=== PATIENT | female | born 1980 | race Asian ===

== ENCOUNTER 2019-05-15 08:10 | Day surgery (SDC) | payer BC, MEDICAID ==
[2019-05-15] MEDS ORDERED: LIDOCAINE 2% (SDV) 5 ML INJ (10:12)
[2019-05-15] MEDS ORDERED: PROPOFOL 40 ML (10:12)
[2019-05-15] MEDS ORDERED: FENTAnyl 50 MCG/ML VIAL (10:12)
[2019-05-15] MEDS ORDERED: MIDAZOLAM 1 MG/ML 2 ML INJ (10:12)
== END 2019-05-15 17:43 | disposition home or self-care (01) ==
LOC: GIL 08:10
DX: C18.7 Malignant neoplasm of sigmoid colon (principal); K64.8 Other hemorrhoids
CPT/HCPCS: 45380; 84703; 88305

== ENCOUNTER 2019-05-16 11:53 | Inpatient (IN) | payer BC ==
[2019-05-16 13:22] LABS: ADD MAN DIFF? NO
[2019-05-16] MEDS: ONDANSETRON 4 MG INJ IV ×2 (13:22→19:57)
[2019-05-16] MEDS: morphine 2 MG INJ IV ×2 (13:23→23:33)
[2019-05-16] MEDS: SOD CHLORIDE 0.9% 1,000 ML IV ×2 (13:23→22:40)
[2019-05-16 13:25] LABS: BASOPHILS % 0.4 % (0.0-2.0); EOSINOPHILS # 0.1 10^3/ul (0.0-0.5); EOSINOPHILS % 1.3 % (0.0-7.0); HEMATOCRIT 35.8 % (37.0-47.0); HEMOGLOBIN 11.5 g/dl (12.0-16.0); LYMPHOCYTES # 1.6 10^3/ul (0.8-2.9); LYMPHOCYTES % 16.4 % (15.0-51.0); MEAN CORPUSCULAR HGB CONC 32.1 g/dl (32.0-37.0); MEAN PLATELET VOLUME 9.7 fl (7.4-10.4); MONOCYTE # 0.7 10^3/ul (0.3-0.9); MONOCYTES % 6.9 % (0.0-11.0); NEUTROPHIL # 7.2 10^3/ul (1.6-7.5); NEUTROPHILS % 74.8 % (39.0-77.0); PLATELET COUNT 258 10^3/UL (140-415); RED BLOOD COUNT 4.26 10^6/ul (4.20-5.40); RED CELL DISTRIBUTION WIDTH 13.2 % (11.5-14.5)
[2019-05-16 13:25] LABS: WHITE BLOOD COUNT 9.7 10^3/ul (4.8-10.8)
[2019-05-16 13:35] LABS: ADD UMIC YES; UR ASCORBIC ACID NEGATIVE (NEGATIVE); UR BACTERIA FEW /HPF (NONE SEEN); UR BILIRUBIN (Dip) NEGATIVE (NEGATIVE); UR BLOOD (Dip) 2+ mg/dL (NEGATIVE); UR CLARITY CLOUDY (CLEAR); UR COLOR YELLOW (YELLOW); UR GLUCOSE (Dip) NEGATIVE (NEGATIVE); UR KETONES (Dip) TRACE mg/dL (NEGATIVE); UR LEUKOCYTE ESTERASE (Dip) NEGATIVE Leu/ul (NEGATIVE); UR MUCUS FEW /HPF (NONE SEEN); UR NITRITE (Dip) NEGATIVE (NEGATIVE); UR RBC 4 /HPF (0-5); UR SPECIFIC GRAVITY (Dip) 1.015 (1.003-1.030); UR SQUAMOUS EPITHELIAL CELL FEW /HPF (FEW); UR TOTAL PROTEIN (Dip) NEGATIVE (NEGATIVE); UR UROBILINOGEN (Dip) NEGATIVE (NEGATIVE); UR WBC 5 /HPF (0-5)
[2019-05-16 13:44] LABS: INR 1.09; PROTIME 14.2 Sec (11.9-14.9); PT RATIO 1.1
[2019-05-16 13:45] LABS: PARTIAL THROMBOPLASTIN TIME 33.5 Sec (23.0-35.0)
[2019-05-16 14:17] LABS: ALANINE AMINOTRANSFERASE 22 IU/L (13-69); ALBUMIN 3.6 g/dl (3.3-4.9); ALBUMIN/GLOBULIN RATIO 1.12; ALKALINE PHOSPHATASE 64 IU/L (42-121); ANION GAP 7 (5-13); ASPARTATE AMINO TRANSFERASE 17 IU/L (15-46); BILIRUBIN,INDIRECT 0.5 mg/dl (0-1.1); BILIRUBIN,TOTAL 0.5 mg/dl (0.2-1.3); BLOOD UREA NITROGEN 8 mg/dl (7-20); CALCIUM 9.3 mg/dl (8.4-10.2); CARBON DIOXIDE 27 mmol/L (21-31); CHLORIDE 111 mmol/L (97-110); Estimated GFR > 60 mL/min (>60); GLUCOSE 100 mg/dl (70-220); LIPASE 78 U/L (23-300); POTASSIUM 3.4 mmol/L (3.5-5.1); SODIUM 145 mmol/L (135-144); TOTAL PROTEIN 6.8 g/dl (6.1-8.1)
[2019-05-16] MEDS: IOHEXOL 300MG/ML 150 ML BTL (15:06)
[2019-05-16] MEDS: SOD CHLORIDE 0.9% 100 ML (15:06)
[2019-05-16] MEDS: morphine 4 MG/ML VIAL IV (19:57)
[2019-05-16] MEDS ORDERED: NACL 0.9% 3 ML SYG IV (21:30)
[2019-05-16] MEDS ORDERED: ONDANSETRON 4 MG INJ IV ×2 (21:30)
[2019-05-16] MEDS ORDERED: ACETAMINOPHEN 325 MG TAB PO (21:30)
[2019-05-16] MEDS: FAMOTIDINE 20 MG INJ IV (22:40)
[2019-05-17] MEDS: ZOLPIDEM 5 MG TAB PO (01:14)
[2019-05-17] MEDS: morphine 2 MG INJ IV ×2 (04:31→08:48)
[2019-05-17 05:05] LABS: ADD MAN DIFF? NO
[2019-05-17 05:06] LABS: BASOPHIL # 0.1 10^3/ul (0.0-0.1); BASOPHILS % 0.7 % (0.0-2.0); EOSINOPHILS # 0.1 10^3/ul (0.0-0.5); EOSINOPHILS % 1.7 % (0.0-7.0); HEMATOCRIT 32.7 % (37.0-47.0); HEMOGLOBIN 10.4 g/dl (12.0-16.0); LYMPHOCYTES % 28.6 % (15.0-51.0); MEAN CORPUSCULAR HEMOGLOBIN 26.8 pg (29.0-33.0); MEAN CORPUSCULAR HGB CONC 31.8 g/dl (32.0-37.0); MEAN CORPUSCULAR VOLUME 84.3 fl (82.0-101.0); MEAN PLATELET VOLUME 9.7 fl (7.4-10.4); MONOCYTE # 0.4 10^3/ul (0.3-0.9); MONOCYTES % 6.4 % (0.0-11.0); NEUTROPHIL # 4.3 10^3/ul (1.6-7.5); NEUTROPHILS % 62.3 % (39.0-77.0); PLATELET COUNT 230 10^3/UL (140-415); RED BLOOD COUNT 3.88 10^6/ul (4.20-5.40); RED CELL DISTRIBUTION WIDTH 13.5 % (11.5-14.5)
[2019-05-17 05:06] LABS: WHITE BLOOD COUNT 6.9 10^3/ul (4.8-10.8)
[2019-05-17 05:38] LABS: ALANINE AMINOTRANSFERASE 25 IU/L (13-69); ALBUMIN 3.1 g/dl (3.3-4.9); ALBUMIN/GLOBULIN RATIO 1.06; ALKALINE PHOSPHATASE 50 IU/L (42-121); ANION GAP 6 (5-13); ASPARTATE AMINO TRANSFERASE 13 IU/L (15-46); BILIRUBIN,INDIRECT 0.4 mg/dl (0-1.1); BILIRUBIN,TOTAL 0.4 mg/dl (0.2-1.3); BLOOD UREA NITROGEN 5 mg/dl (7-20); CALCIUM 8.5 mg/dl (8.4-10.2); CARBON DIOXIDE 25 mmol/L (21-31); CHLORIDE 111 mmol/L (97-110); CHOL/HDL RATIO 3.3 RATIO; CHOLESTEROL 128 mg/dl (100-200); CREATININE 0.65 mg/dl (0.44-1.00); Estimated GFR > 60 mL/min (>60); GLUCOSE 100 mg/dl (70-220); HDL CHOLESTEROL 38 mg/dl (34-88); LDL CHOLESTEROL,CALCULATED 73 mg/dl; MAGNESIUM 1.8 mg/dl (1.7-2.5); POTASSIUM 3.4 mmol/L (3.5-5.1); SODIUM 142 mmol/L (135-144); TRIGLYCERIDES 85 mg/dl (0-149)
[2019-05-17] MEDS: FAMOTIDINE 20 MG INJ IV (08:47)
[2019-05-17] MEDS: SOD CHLORIDE 0.9% 1,000 ML IV (10:44)
[2019-05-17] MEDS: HYDROmorphONE 1 MG/ML SYG IV ×3 (12:22→21:11)
[2019-05-17] MEDS: POTASSIUM CHLORIDE (SR) 20 MEQ TAB PO (16:06)
[2019-05-17] MEDS: D5-NS + KCL 20 MEQ 1,000 ML IV (16:15)
[2019-05-17] MEDS: FAMOTIDINE 20 MG TAB PO (21:11)
[2019-05-18] MEDS: HYDROmorphONE 1 MG/ML SYG IV ×5 (00:39→18:57)
[2019-05-18] MEDS: D5-NS + KCL 20 MEQ 1,000 ML IV ×2 (04:30→18:53)
[2019-05-18 05:09] LABS: ADD MAN DIFF? NO
[2019-05-18 05:12] LABS: BASOPHILS % 0.7 % (0.0-2.0); EOSINOPHILS # 0.2 10^3/ul (0.0-0.5); EOSINOPHILS % 3.1 % (0.0-7.0); HEMATOCRIT 30.8 % (37.0-47.0); HEMOGLOBIN 9.8 g/dl (12.0-16.0); LYMPHOCYTES % 34.5 % (15.0-51.0); MEAN CORPUSCULAR HGB CONC 31.8 g/dl (32.0-37.0); MEAN CORPUSCULAR VOLUME 84.8 fl (82.0-101.0); MEAN PLATELET VOLUME 9.5 fl (7.4-10.4); MONOCYTE # 0.4 10^3/ul (0.3-0.9); NEUTROPHIL # 3.2 10^3/ul (1.6-7.5); NEUTROPHILS % 54.4 % (39.0-77.0); PLATELET COUNT 220 10^3/UL (140-415); RED BLOOD COUNT 3.63 10^6/ul (4.20-5.40); RED CELL DISTRIBUTION WIDTH 13.2 % (11.5-14.5)
[2019-05-18 05:12] LABS: WHITE BLOOD COUNT 5.9 10^3/ul (4.8-10.8)
[2019-05-18 05:36] LABS: ALANINE AMINOTRANSFERASE 24 IU/L (13-69); ALKALINE PHOSPHATASE 50 IU/L (42-121); ANION GAP 5 (5-13); ASPARTATE AMINO TRANSFERASE 18 IU/L (15-46); BILIRUBIN,INDIRECT 0.4 mg/dl (0-1.1); BILIRUBIN,TOTAL 0.4 mg/dl (0.2-1.3); BLOOD UREA NITROGEN 2 mg/dl (7-20); CALCIUM 8.5 mg/dl (8.4-10.2); CARBON DIOXIDE 26 mmol/L (21-31); CHLORIDE 109 mmol/L (97-110); CREATININE 0.59 mg/dl (0.44-1.00); Estimated GFR > 60 mL/min (>60); GLUCOSE 102 mg/dl (70-220); POTASSIUM 3.3 mmol/L (3.5-5.1); SODIUM 140 mmol/L (135-144)
[2019-05-18] MEDS: FAMOTIDINE 20 MG TAB PO ×2 (08:02→21:19)
[2019-05-18] MEDS: POTASSIUM CHLORIDE 100 ML IVPB (13:28)
[2019-05-18] MEDS ORDERED: MIDAZOLAM 1 MG/ML 2 ML INJ (15:22)
[2019-05-18] MEDS ORDERED: ROCURONIUM 50 MG INJ (15:23)
[2019-05-18] MEDS ORDERED: LIDOCAINE 2% (SDV) 5 ML INJ (15:23)
[2019-05-18] MEDS ORDERED: PROPOFOL 20 ML (15:23)
[2019-05-18] MEDS ORDERED: SUCCINYLCHOLINE CHLORIDE 100 MG/5 ML SYG IV (15:23)
[2019-05-18] MEDS ORDERED: morphine SULFATE/PF (10 MG/10 ML) INJ (15:37)
[2019-05-18] MEDS ORDERED: FENTAnyl 50 MCG/ML VIAL (15:45)
[2019-05-18] MEDS ORDERED: metroNIDAZOLE 500 MG/NS (PMX) 100 ML IVPB ×2 (16:04→18:00)
[2019-05-18] MEDS ORDERED: CEFAZOLIN 1 GM INJ (16:04)
[2019-05-18] MEDS ORDERED: FAMOTIDINE 20 MG INJ (16:11)
[2019-05-18] MEDS ORDERED: ONDANSETRON 4 MG INJ (16:11)
[2019-05-18] MEDS ORDERED: DEXAMETHASONE 4 MG/ML 5 ML INJ (16:11)
[2019-05-18] MEDS ORDERED: EPHEDrine 25 MG/5 ML SYG (16:53)
[2019-05-18] MEDS ORDERED: GLYCOPYRROLATE 0.4 MG INJ ×2 (17:27→17:46)
[2019-05-18] MEDS ORDERED: NEOSTIGMINE 3 MG/3 ML SYRINGE ×2 (17:27→17:46)
[2019-05-18] MEDS ORDERED: PROCHLORPERAZINE 10 MG INJ IV (17:30)
[2019-05-18] MEDS ORDERED: ONDANSETRON 4 MG INJ IV ×3 (17:30→18:00)
[2019-05-18] MEDS ORDERED: DIPHENHYDRAMINE 50 MG INJ IV (17:30)
[2019-05-18] MEDS ORDERED: HYDROmorphONE 0.5 MG/0.5 ML SYG IV ×2 (17:30)
[2019-05-18] MEDS ORDERED: MEPERIDINE 25 MG INJ IV (17:30)
[2019-05-18] MEDS ORDERED: FENTAnyl 50 MCG/ML VIAL IV ×3 (17:30)
[2019-05-18] MEDS ORDERED: HYDROmorphONE 1 MG/5 ML IV SYRINGE IV ×3 (17:30)
[2019-05-18] MEDS ORDERED: NALBUPHINE HCL (10 MG/1 ML) INJ IV (17:30)
[2019-05-18] MEDS ORDERED: NALOXONE (0.4 MG/ML) INJ IV (17:30)
[2019-05-18] MEDS ORDERED: CEFAZOLIN 2 GM/50 ML (PMX) 50 ML IVPB ×2 (18:00→20:00)
[2019-05-18] MEDS ORDERED: ACETAMINOPHEN 500 MG TAB PO (18:00)
[2019-05-18] MEDS ORDERED: KETOROLAC 30 MG INJ (18:26)
[2019-05-18] MEDS: KETOROLAC 30 MG INJ IV ×2 (18:27→23:40)
[2019-05-18 18:38] LABS: ADD MAN DIFF? NO
[2019-05-18 19:17] LABS: BASOPHILS % 0.4 % (0.0-2.0); HEMATOCRIT 34.9 % (37.0-47.0); HEMOGLOBIN 11.1 g/dl (12.0-16.0); LYMPHOCYTES % 16.3 % (15.0-51.0); MEAN CORPUSCULAR HGB CONC 31.8 g/dl (32.0-37.0); MEAN CORPUSCULAR VOLUME 84.9 fl (82.0-101.0); MONOCYTES % 1.9 % (0.0-11.0); NEUTROPHILS % 80.1 % (39.0-77.0); PLATELET COUNT 230 10^3/UL (140-415); RED BLOOD COUNT 4.11 10^6/ul (4.20-5.40); RED CELL DISTRIBUTION WIDTH 13.2 % (11.5-14.5)
[2019-05-18 19:17] LABS: WHITE BLOOD COUNT 7.9 10^3/ul (4.8-10.8)
[2019-05-18 19:18] LABS: EOSINOPHILS # 0.1 10^3/ul (0.0-0.5); LYMPHOCYTES # 1.3 10^3/ul (0.8-2.9); MONOCYTE # 0.2 10^3/ul (0.3-0.9); NEUTROPHIL # 6.3 10^3/ul (1.6-7.5)
[2019-05-18 19:39] LABS: ANION GAP 5 (5-13); BLOOD UREA NITROGEN 3 mg/dl (7-20); CALCIUM 8.3 mg/dl (8.4-10.2); CARBON DIOXIDE 26 mmol/L (21-31); CHLORIDE 109 mmol/L (97-110); CREATININE 0.52 mg/dl (0.44-1.00); Estimated GFR > 60 mL/min (>60); GLUCOSE 129 mg/dl (70-220); POTASSIUM 3.4 mmol/L (3.5-5.1); SODIUM 140 mmol/L (135-144)
[2019-05-18] MEDS ORDERED: FAMOTIDINE 20 MG TAB PO (21:00)
[2019-05-18] MEDS: CEFAZOLIN 2 GM/50 ML (PMX) 50 ML IVPB (21:17)
[2019-05-18] MEDS: metroNIDAZOLE 500 MG/NS (PMX) 100 ML IVPB (22:02)
[2019-05-18] MEDS: DIPHENHYDRAMINE 50 MG INJ IV (22:07)
[2019-05-19] MEDS: CEFAZOLIN 2 GM/50 ML (PMX) 50 ML IVPB ×2 (04:27→12:27)
[2019-05-19] MEDS: D5-NS + KCL 20 MEQ 1,000 ML IV (04:28)
[2019-05-19 05:06] LABS: ADD MAN DIFF? NO
[2019-05-19 05:22] LABS: BASOPHILS % 0.1 % (0.0-2.0); HEMATOCRIT 30.2 % (37.0-47.0); HEMOGLOBIN 9.7 g/dl (12.0-16.0); LYMPHOCYTES # 0.6 10^3/ul (0.8-2.9); LYMPHOCYTES % 7.8 % (15.0-51.0); MEAN CORPUSCULAR HEMOGLOBIN 26.9 pg (29.0-33.0); MEAN CORPUSCULAR HGB CONC 32.1 g/dl (32.0-37.0); MEAN CORPUSCULAR VOLUME 83.9 fl (82.0-101.0); MEAN PLATELET VOLUME 10.1 fl (7.4-10.4); MONOCYTE # 0.3 10^3/ul (0.3-0.9); MONOCYTES % 4.1 % (0.0-11.0); NEUTROPHIL # 7.2 10^3/ul (1.6-7.5); NEUTROPHILS % 87.8 % (39.0-77.0); PLATELET COUNT 232 10^3/UL (140-415); RED CELL DISTRIBUTION WIDTH 12.8 % (11.5-14.5)
[2019-05-19 05:22] LABS: WHITE BLOOD COUNT 8.3 10^3/ul (4.8-10.8)
[2019-05-19] MEDS: metroNIDAZOLE 500 MG/NS (PMX) 100 ML IVPB ×2 (05:31→12:27)
[2019-05-19] MEDS: KETOROLAC 30 MG INJ IV ×4 (05:32→21:39)
[2019-05-19 06:07] LABS: ANION GAP 4 (5-13); BLOOD UREA NITROGEN 3 mg/dl (7-20); CARBON DIOXIDE 26 mmol/L (21-31); CHLORIDE 108 mmol/L (97-110); CREATININE 0.53 mg/dl (0.44-1.00); GLUCOSE 131 mg/dl (70-220); POTASSIUM 4.1 mmol/L (3.5-5.1); SODIUM 138 mmol/L (135-144)
[2019-05-19 06:08] LABS: ALANINE AMINOTRANSFERASE 34 IU/L (13-69); ALBUMIN 2.7 g/dl (3.3-4.9); ALKALINE PHOSPHATASE 44 IU/L (42-121); ASPARTATE AMINO TRANSFERASE 20 IU/L (15-46); BILIRUBIN,INDIRECT 0.4 mg/dl (0-1.1); BILIRUBIN,TOTAL 0.4 mg/dl (0.2-1.3); CALCIUM 8.3 mg/dl (8.4-10.2); Estimated GFR > 60 mL/min (>60); TOTAL PROTEIN 5.4 g/dl (6.1-8.1)
[2019-05-19] MEDS: ENOXAPARIN 30 MG/0.3 ML SYG SC (06:35)
[2019-05-19] MEDS: FAMOTIDINE 20 MG TAB PO ×2 (08:27→21:34)
[2019-05-20] MEDS: CEPASTAT LOZENGE MT (01:09)
[2019-05-20] MEDS: KETOROLAC 30 MG INJ IV ×2 (03:24→08:41)
[2019-05-20 04:58] LABS: ADD MAN DIFF? NO
[2019-05-20 05:24] LABS: BASOPHILS % 0.6 % (0.0-2.0); EOSINOPHILS # 0.1 10^3/ul (0.0-0.5); HEMATOCRIT 29.8 % (37.0-47.0); HEMOGLOBIN 9.3 g/dl (12.0-16.0); LYMPHOCYTES % 37.8 % (15.0-51.0); MEAN CORPUSCULAR HEMOGLOBIN 26.9 pg (29.0-33.0); MEAN CORPUSCULAR HGB CONC 31.2 g/dl (32.0-37.0); MEAN CORPUSCULAR VOLUME 86.1 fl (82.0-101.0); MEAN PLATELET VOLUME 10.2 fl (7.4-10.4); MONOCYTE # 0.3 10^3/ul (0.3-0.9); MONOCYTES % 6.6 % (0.0-11.0); NEUTROPHIL # 2.8 10^3/ul (1.6-7.5); NEUTROPHILS % 53.8 % (39.0-77.0); PLATELET COUNT 215 10^3/UL (140-415); RED BLOOD COUNT 3.46 10^6/ul (4.20-5.40); RED CELL DISTRIBUTION WIDTH 13.4 % (11.5-14.5)
[2019-05-20 05:24] LABS: WHITE BLOOD COUNT 5.2 10^3/ul (4.8-10.8)
[2019-05-20 05:42] LABS: MAGNESIUM 1.7 mg/dl (1.7-2.5)
[2019-05-20 05:42] LABS: PHOSPHORUS 2.9 mg/dl (2.5-4.9)
[2019-05-20 05:56] LABS: ALANINE AMINOTRANSFERASE 40 IU/L (13-69); ALBUMIN 2.6 g/dl (3.3-4.9); ALBUMIN/GLOBULIN RATIO 0.96; ALKALINE PHOSPHATASE 48 IU/L (42-121); ANION GAP 4 (5-13); ASPARTATE AMINO TRANSFERASE 25 IU/L (15-46); BILIRUBIN,INDIRECT 0.4 mg/dl (0-1.1); BILIRUBIN,TOTAL 0.4 mg/dl (0.2-1.3); BLOOD UREA NITROGEN 7 mg/dl (7-20); CARBON DIOXIDE 26 mmol/L (21-31); CHLORIDE 110 mmol/L (97-110); CREATININE 0.59 mg/dl (0.44-1.00); Estimated GFR > 60 mL/min (>60); GLUCOSE 95 mg/dl (70-220); POTASSIUM 3.7 mmol/L (3.5-5.1); SODIUM 140 mmol/L (135-144); TOTAL PROTEIN 5.3 g/dl (6.1-8.1)
[2019-05-20] MEDS: D5-NS + KCL 20 MEQ 1,000 ML IV (06:38)
[2019-05-20] MEDS: ENOXAPARIN 30 MG/0.3 ML SYG SC (06:46)
[2019-05-20] MEDS ORDERED: HYDROCODONE/APAP (5/325) TAB PO (08:30)
[2019-05-20] MEDS: FAMOTIDINE 20 MG TAB PO (08:40)
== END 2019-05-20 10:40 | disposition home or self-care (01) | DRG 330 ==
LOC: FTE 11:53 → MS1 21:01
PROC: 0DBN0ZZ Excision of Sigmoid Colon, Open Approach (ICD-10-PCS; principal; 2019-05-18 15:30)
DX: C18.7 Malignant neoplasm of sigmoid colon (principal); K56.1 Intussusception; E87.6 Hypokalemia; D64.9 Anemia, unspecified; K63.4 Enteroptosis
CPT/HCPCS: 36415; 71045; 74177; 80048; 80053; 80061; 81001; 81025; 83036; 83690; 83735; 84100; 84443; 85025; 85610; 85730; 86850; 86900; 86901; 87086; 88309; 93005; 96374; 96375; 96376; 99285-25

== ENCOUNTER 2019-06-02 13:21 | Emergency (ER) | payer BC ==
[2019-06-02 14:42] LABS: ADD MAN DIFF? NO
[2019-06-02 14:43] LABS: BASOPHIL # 0.1 10^3/ul (0.0-0.1); BASOPHILS % 0.7 % (0.0-2.0); EOSINOPHILS # 0.1 10^3/ul (0.0-0.5); EOSINOPHILS % 1.8 % (0.0-7.0); HEMATOCRIT 37.8 % (37.0-47.0); HEMOGLOBIN 11.9 g/dl (12.0-16.0); LYMPHOCYTES # 2.4 10^3/ul (0.8-2.9); LYMPHOCYTES % 34.7 % (15.0-51.0); MEAN CORPUSCULAR HEMOGLOBIN 26.9 pg (29.0-33.0); MEAN CORPUSCULAR HGB CONC 31.5 g/dl (32.0-37.0); MEAN CORPUSCULAR VOLUME 85.5 fl (82.0-101.0); MEAN PLATELET VOLUME 10.5 fl (7.4-10.4); MONOCYTE # 0.3 10^3/ul (0.3-0.9); MONOCYTES % 4.4 % (0.0-11.0); NEUTROPHILS % 58.3 % (39.0-77.0); PLATELET COUNT 262 10^3/UL (140-415); RED BLOOD COUNT 4.42 10^6/ul (4.20-5.40); RED CELL DISTRIBUTION WIDTH 13.2 % (11.5-14.5)
[2019-06-02 14:43] LABS: WHITE BLOOD COUNT 6.8 10^3/ul (4.8-10.8)
[2019-06-02 15:00] LABS: ANION GAP 7 (5-13); BLOOD UREA NITROGEN 8 mg/dl (7-20); CALCIUM 9.5 mg/dl (8.4-10.2); CARBON DIOXIDE 28 mmol/L (21-31); CHLORIDE 107 mmol/L (97-110); CREATININE 0.69 mg/dl (0.44-1.00); Estimated GFR > 60 mL/min (>60); GLUCOSE 86 mg/dl (70-220); POTASSIUM 3.8 mmol/L (3.5-5.1); SODIUM 142 mmol/L (135-144)
[2019-06-02] MEDS ORDERED: IOHEXOL 300MG/ML 150 ML BTL (15:08)
[2019-06-02] MEDS ORDERED: SOD CHLORIDE 0.9% 100 ML (15:08)
[2019-06-02 15:45] LABS: OCCULT BLOOD STOOL NEGATIVE (NEGATIVE)
== END 2019-06-02 17:55 | disposition home or self-care (01) ==
LOC: E/R 13:21
DX: K62.5 Hemorrhage of anus and rectum (principal); Z85.038 Personal history of other malignant neoplasm of large intestine
CPT/HCPCS: 36415; 74177; 80048; 81025; 82270; 85025; 99284-25

== ENCOUNTER 2019-06-30 20:50 | Emergency (ER) | payer BC ==
[2019-06-30] MEDS ORDERED: MINERAL OIL 133 ML ENEMA PR (22:30)
[2019-06-30] MEDS ORDERED: IBUPROFEN 600 MG TAB PO (22:30)
[2019-06-30] MEDS: MINERAL OIL 133 ML ENEMA PR ×2 (23:33→23:34)
== END 2019-06-30 23:36 | disposition home or self-care (01) ==
LOC: E/R 23:36
DX: K62.89 Other specified diseases of anus and rectum (principal); K59.00 Constipation, unspecified; D01.0 Carcinoma in situ of colon
CPT/HCPCS: 99284; Z7502